=== PATIENT | male | born 1990 | race Caucasian/White ===

== ENCOUNTER 2017-12-26 00:03 | Emergency (ER) | payer OTHER ==
[~2017-12-26] VITALS: Ht 203.2 cm; Wt 111.1 kg
[~2017-12-26 00:03] MED LIST: ACETAMINOPHEN-1 EAC1 PO; AMOXICILLIN 50500 MG PO; ANAPROX DS550 MG PO; AUGMENTIN 875-1 EACH; CLARITIN10 MG PO; CLEOCIN HCL150 MG PO; FLEXERIL PO; HYDROCODONE-AP1 EAC6 PO; IBUPROFEN 800800 MG PO; KEFLEX500 MG PO; MEDROLDOSEPACK PO; NOHOMEMEDICATIONS; NORCO 5-325 TA1 EACH PO; NORFLEX100 MG PO; OXYCODON-ACETA1 EAC1 PO; PERCOCET 5-3251 EACH PO; PREDNISONE 20 M20 M1 PO; PROAIR HFA8.5 GM INH; ROBAXIN 750 MG750 M1 PO; TESSALON PERLE100 MG; TRIAMCINOLONE A80 G2 TOP; TYLENOL325 MG PO; ZOFRAN ODT4 MG PO; ZPAK PO
[2017-12-26] MEDS ORDERED: NORCO 5-325 TA1 EAC1 PO (00:13)
[2017-12-26] MEDS ORDERED: CLARITIN10 MG PO (00:14)
[2017-12-26 00:21] VITALS: BP 136/79
== END 2017-12-26 00:21 | disposition home or self-care (01) ==
LOC: M.ERS 00:03
DX: M27.63 Post-osseointegration mechanical failure of dental implant (principal)

== ENCOUNTER 2018-03-26 00:59 | Emergency (ER) | payer OTHER ==
[~2018-03-26] VITALS: Ht 205.7 cm; Wt 111.1 kg
[~2018-03-26 00:59] MED LIST changes: +NORCO 5-325 TA1 EAC1 PO
[2018-03-26 01:03] VITALS: BP 134/89
[2018-03-26] MEDS ORDERED: FLONASE 0.05%50 MCG NASAL (01:26)
== END 2018-03-26 01:27 | disposition home or self-care (01) ==
LOC: M.ERS 00:59
DX: R51 Headache (principal); R09.81 Nasal congestion; F17.210 Nicotine dependence, cigarettes, uncomplicated

== ENCOUNTER 2018-04-22 17:09 | Emergency (ER) | payer OTHER ==
[~2018-04-22] VITALS: Ht 205.7 cm; Wt 117.9 kg
[~2018-04-22 17:09] MED LIST changes: +FLONASE 0.05%50 MCG NASAL
[2018-04-22 17:23] VITALS: BP 122/75
[2018-04-22 17:23] LABS: URINE BILIRUBIN NEGATIVE (Negative); URINE BLOOD NEGATIVE (Negative); URINE CLARITY CLEAR; URINE COLOR YELLOW; URINE GLUCOSE-RANDOM NEGATIVE (Negative); URINE KETONES NEGATIVE (Negative); URINE LEUKOCYTES-REFLEX NEGATIVE (Negative); URINE NITRITE-REFLEX NEGATIVE (Negative); URINE PROTEIN NEGATIVE (Negative); URINE SPECIFIC GRAVITY 1.025 (1.005-1.030); URINE UROBILINOGEN 0.2 E.U./dl (0.2-1.0)
[2018-04-22] MEDS ORDERED: ZOFRAN4 MG PO (17:30)
== END 2018-04-22 17:39 | disposition home or self-care (01) ==
LOC: M.ERS 17:09
PROVIDERS: Nurse Practitioner Family
DX: R11.2 Nausea with vomiting, unspecified (principal); R19.7 Diarrhea, unspecified; F17.210 Nicotine dependence, cigarettes, uncomplicated

== ENCOUNTER 2018-05-11 04:16 | Emergency (ER) | payer OTHER ==
[~2018-05-11] VITALS: Ht 205.7 cm; Wt 104.3 kg
[~2018-05-11 04:16] MED LIST changes: +ZOFRAN4 MG PO
[2018-05-11] MEDS ORDERED: DOXYCYCLINE 10100 M2 PO (04:51)
[2018-05-11] MEDS ORDERED: PROMETH-CODEIN 65 ML PO (04:51)
[2018-05-11] MEDS ORDERED: PROAIR HFA8.5 GM INH (04:51)
[2018-05-11 04:59] VITALS: BP 125/71
== END 2018-05-11 04:59 | disposition home or self-care (01) ==
LOC: M.ERS 04:16
DX: J18.9 Pneumonia, unspecified organism (principal); F17.210 Nicotine dependence, cigarettes, uncomplicated; Z88.8 Allergy status to other drugs, medicaments and biological substances

== ENCOUNTER 2018-10-28 07:53 | Emergency (ER) | payer OTHER ==
[~2018-10-28] VITALS: Ht 205.7 cm; Wt 111.1 kg
[~2018-10-28 07:53] MED LIST changes: +DOXYCYCLINE 10100 M2 PO; +PROMETH-CODEIN 65 ML PO
[2018-10-28 08:15] LABS: URINE BILIRUBIN NEGATIVE (Negative); URINE BLOOD NEGATIVE (Negative); URINE CLARITY CLEAR; URINE COLOR YELLOW; URINE GLUCOSE-RANDOM NEGATIVE (Negative); URINE KETONES TRACE (Negative); URINE LEUKOCYTES-REFLEX NEGATIVE (Negative); URINE NITRITE-REFLEX NEGATIVE (Negative); URINE PROTEIN NEGATIVE (Negative); URINE SPECIFIC GRAVITY >= 1.030 (1.005-1.030); URINE UROBILINOGEN 0.2 E.U./dl (0.2-1.0)
[2018-10-28 08:26] LABS: ABSOLUTE EOSINOPHILS 0.1 thou/uL (0.0-0.7); ABSOLUTE LYMPHOCYTES 1.3 thou/uL (0.8-5.3); ABSOLUTE MONOCYTES 0.9 thou/uL (0.0-1.2); ABSOLUTE NEUTROPHILS 6.6 thou/uL (1.6-8.1); BASOPHILS 0.5 %; EOSINOPHILS 0.7 %; HEMATOCRIT 50.1 % (42.0-52.0); HEMOGLOBIN 17.4 gm/dL (14.0-18.0); LYMPHOCYTES 14.5 %; MCH 30.8 pg (26.0-34.0); MCHC 34.7 g/dL (28.0-37.0); MCV 88.8 fL (80.0-100.0); MPV 7.6 fl. (7.2-11.1); NUCLEATED RBCS 0 /100WBC; PLATELET COUNT* 245 thou/uL (150-400); POLYS 74.3 %; RBC 5.64 mil/uL (4.50-6.00); RDW-CV 13.4 % (10.5-14.5); WBC 8.9 thou/uL (4.0-11.0)
[2018-10-28 08:36] LABS: CREATININE 1.2 mg/dL (0.6-1.3); POTASSIUM 4.3 mmol/L (3.5-5.1)
[2018-10-28] MEDS ORDERED: ZOFRAN ODT4 MG SUBLING (08:38)
[2018-10-28 08:40] LABS: ALBUMIN 4.1 g/dL (3.4-5.0); TOTAL BILIRUBIN 0.2 mg/dL (<0.1-1.0); TOTAL PROTEIN 7.9 g/dL (6.4-8.2)
[2018-10-28 08:46] VITALS: BP 118/70
== END 2018-10-28 08:47 | disposition home or self-care (01) ==
LOC: M.ERS 07:53
PROVIDERS: Family Medicine
DX: R19.7 Diarrhea, unspecified (principal); R11.2 Nausea with vomiting, unspecified; F17.210 Nicotine dependence, cigarettes, uncomplicated; Z88.4 Allergy status to anesthetic agent

== ENCOUNTER 2020-05-01 13:01 | Emergency (ER) | payer OTHER ==
[~2020-05-01] VITALS: Ht 195.6 cm; Wt 111.1 kg
[~2020-05-01 13:01] MED LIST changes: +ZOFRAN ODT4 MG SUBLING
[2020-05-01 13:05] VITALS: BP 138/84
[2020-05-01] MEDS ORDERED: NORCO 5-325 TA1 EAC2 PO (13:30)
[2020-05-01] MEDS ORDERED: IBUPROFEN 800800 M1 PO (13:30)
[2020-05-01] MEDS ORDERED: PENICILLIN V P500 MG PO (13:30)
== END 2020-05-01 13:40 | disposition home or self-care (01) ==
LOC: M.ERS 13:01
DX: K08.89 Other specified disorders of teeth and supporting structures (principal); F17.210 Nicotine dependence, cigarettes, uncomplicated; Z96.22 Myringotomy tube(s) status; Z88.8 Allergy status to other drugs, medicaments and biological substances

== ENCOUNTER 2021-05-27 13:34 | Emergency (ER) | payer OTHER ==
[~2021-05-27] VITALS: Ht 205.7 cm; Wt 108.9 kg
[~2021-05-27 13:34] MED LIST changes: +IBUPROFEN 800800 M1 PO; +NORCO 5-325 TA1 EAC2 PO; +PENICILLIN V P500 MG PO
[2021-05-27] MEDS ORDERED: CLARITIN10 M2 PO (13:48)
[2021-05-27] MEDS ORDERED: AMOXICILLIN 50500 MG PO (14:23)
[2021-05-27] MEDS ORDERED: HYDROCODON-ACE1 EAC7 PO (14:23)
[2021-05-27 14:30] VITALS: BP 140/87
== END 2021-05-27 14:31 | disposition home or self-care (01) ==
LOC: M.ERS 13:34
DX: K08.89 Other specified disorders of teeth and supporting structures (principal); F17.210 Nicotine dependence, cigarettes, uncomplicated; Z79.899 Other long term (current) drug therapy; Z88.8 Allergy status to other drugs, medicaments and biological substances